=== PATIENT | male | born 1950 | race Caucasian/White ===

== ENCOUNTER 2025-06-29 14:19 | Outpatient (AMB) | payer MEDICARE, SELFPAY | END 2025-06-29 14:22 | disposition home or self-care (01) | LOC: HO.HMGAL 14:19 | PROVIDERS: PCP Internal Medicine; Visit Provider Registered Nurse Emergency | DX: J30.89 Other allergic rhinitis (principal) | CPT/HCPCS: 95117; 95165 ==

== ENCOUNTER 2025-07-27 15:04 | Outpatient (AMB) | payer MEDICARE, SELFPAY ==
--- OUTSIDE RECORDS SUMMARY | 2025-07-27 20:29 | XMS_ITS ---
Author Name Gopal Chicas Address Unknown Organization [facility] Care Team Providers Care Test Desk Trouble Locator Name Role Phone Unavailable Primary Care Physician Unavailab le History Of Present Illness This is a 75 year old male who is an established patient who is being seen for an evaluation of skin lesions.Location: body throughoutPertinent History: actinic keratosesPertinent Negatives: no family history of melanoma and no family history of non-melanoma skin cancerAdditional Visit Reasons: education and counseling about sun exposure, evaluation for suspicious growths, and evaluation of current neviAdditional History: Patient presents for CSE, Medications Medication Generic Name RxNorm Strength Strength Unit Route Dose Dose Form Frequency Date Started Date Ended Status Indication Sig fluticasone propionate 50 mcg/actua tion Nasal spray ,susp ensio n suspend ed Adult Aspirin Regimen aspirin 81 mg Oral 1 table t,del ayed relea se (DR/E C) qd active Adult Multivitami n (w-lutein) mv-min-f olic acid-lut ein 200-137.5 mcg Oral 1 table t,sherin wable qd active amlodipine 5 mg Oral table t suspend ed amlodipine amlodipi ne 5 mg Oral 1 table t qd active atorvastati n 10 mg Oral table t suspend ed atorvastati n atorvast atin 10 mg Oral 1 table t qd active H2Q CoQ10 coenzyme Q10 200 mg/gram Oral 1 powde r qd active losartan 50 mg Oral table t suspend ed losartan [id number] 50 mg Oral 1 table t qd active Problems Problem Code Type Status Date of Diagnosis Date of Resolution Seborrheic keratosis (disorder) 190227693( SNOMED) Diagnosis active 07/27/2025 Hypopigmentation of skin (disorder) 17475518(S NOMED) Diagnosis active 07/27/2025 Caf au lait spot (disorder) 897582247( SNOMED) Diagnosis active 07/27/2025 Melanocytic nevus of left lower limb (disorder) 5149910620 15469(SNOM ED) Diagnosis active 07/27/2025 Hemangioma of skin and subcutaneous tissue (disorder) 036288696( SNOMED) Diagnosis active 07/27/2025 Disorder of pigmentation (disorder) 413525023( SNOMED) Diagnosis active 07/27/2025 Seborrheic keratosis (disorder) 460880323( SNOMED) Diagnosis active 08/11/2024 Hemangioma of skin and subcutaneous tissue (disorder) 873815090( SNOMED) Diagnosis active 08/11/2024 Hypopigmentation of skin (disorder) 94896262(S NOMED) Diagnosis active 08/11/2024 Caf au lait spot (disorder) 798266035( SNOMED) Diagnosis active 08/11/2024 Melanocytic nevus of left lower limb (disorder) 5978091012 21310(SNOM ED) Diagnosis active 08/11/2024 Actinic keratosis (disorder) ( SNOMED) Diagnosis active 02/06/2024 Inflamed seborrheic keratosis (disorder) 630662797( SNOMED) Diagnosis active 02/06/2024 Seborrheic keratosis (disorder) 493403804( SNOMED) Diagnosis active 02/06/2024 Actinic keratosis (disorder) ( SNOMED) Diagnosis active 03/13/2023 Hemangioma of skin and subcutaneous tissue (disorder) 961772208( SNOMED) Diagnosis active 03/13/2023 Hypopigmentation of skin (disorder) 06620413(S NOMED) Diagnosis active 03/13/2023 Hypopigmentation of skin (disorder) 60906410(S NOMED) Diagnosis active 03/09/2022 Actinic keratosis (disorder) ( SNOMED) Diagnosis active 03/09/2022 Melanocytic nevus of trunk (disorder) 377685325( SNOMED) Diagnosis active 03/09/2022 Melanocytic nevus of left lower limb (disorder) 5904044113 80873(SNOM ED) Diagnosis active 03/09/2022 Melanocytic nevus of lower limb (disorder) 477151677( SNOMED) Diagnosis active 03/09/2022 Increased blood pressure (finding) 91230119(S NOMED) Problem active Hypercholesterolemia (disorder) 89301378(S NOMED) Problem active Actinic keratosis (disorder) ( SNOMED) Problem active Results No data Encounters Service provided at [facility], [address] [place] [address], [address], [place], [place] [id number]. Office phone number is [phone]. Office fax number is [phone]. 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 (L81.3)Acral Nevus (D22.72)Bhat Angiomas (D18.01)Lentigines (L81.4) [facility] 07/27/2025 13:20:00 [facility] [id number] Reason For Referral No data Procedures Procedure Date Documentation of current medications (pr ocedure) 07/27/2025 12:00 am [place] Destruction of premalignant skin lesion (procedure) 02/06/2024 12:00 am [place] Cryotherapy of skin lesion with liquid n itrogen (procedure) 02/06/2024 12:00 am UTC Cryotherapy of skin lesion with liquid n itrogen (procedure) 03/13/2023 12:00 am [place] Review Of Systems Provider reviewed on Jul 27, 2025.A focused review of systems was performed including Integumentary.No Problems With Healing And No Problems With Scarring (hypertrophic Or Keloid). Assessment 1.Seborrheic KeratosisCounseling2.Idiopathic Guttate HypomelanosisCounseling3.Cafe au lait maculeCounseling4.Acral NevusCounselingMonitoring5.Bhat AngiomasCounseling6.LentiginesCounseling Plan of Care Future visit for 07/27/2026 - Follow up in 1 year for: Skin Check. Other Instructions: 10CSE. OtherInstructions: 10CSE. Instructions * I counseled the patient regarding the following:Skin Care: Seborrheic Keratoses are benign. No treatment is necessary.Expectations: Seborrheic Keratoses are benign warty growths. Patients get more ofthem with time. * I counseled the patient regarding the following:Skin care: New lesions can be prevented by minimizing sun exposure, wearing sunscreen and protective clothing.Expectations: Idiopathic Guttate Hypomelanosis are white spots caused from sun damage.Contact office if: white spots become larger, or spreadto other parts of the body.I recommended the following: Sunscreen * I counseled the patient regarding the following:Skin care: CALMs with irregular borders can often respond to q-switched lasers.Expectations: Cafe au lait macules are benign johnson patches seen at .Patients with multiple CALMs should be screened for associated syndromes (Neurofibromatosis, richardson syndrome, peibaldism, tuberous sclerosis, juanita-silver) * I counseled the patient regarding the following:Expectations: Benign Nevi are pigmented nests of cells within the skin.Contact Office if: Any moles change in size, shape or color; itch, burn or bleed.I recommended the following: Broad Spectrum Sunscreen SPF 30+Self-Skin Exams * I counseled the patient regarding the following:Skin Care: Bhat Angiomas can resolve with lasers or electrodesiccation.Expectations: Bhat Angiomas are benign vascular growths. No treatment is necessary. * I counseled the patient regarding the following:Skin Care: Lentigines can resolve with broad spectrum sunscreen, sun avoidance, bleaching creams, retinoids, chemical peels and laser.Expectations: Lentigines are benign pigmented lesions that occur on sun-exposed and sun-damaged skin.I recommended the following: Broad Spectrum Sunscreen SPF 30+ Social History Code Activity Start Date End Date [id number] (MRI Interventions) Never smoker Sex male Sexual orientation Unspecified Gender identity Unspecified Vital Signs No data
== END 2025-07-27 15:05 | disposition home or self-care (01) ==
LOC: HO.HMGAL 15:04
PROVIDERS: PCP Internal Medicine; Visit Provider Registered Nurse Emergency
DX: J30.89 Other allergic rhinitis (principal)
CPT/HCPCS: 95117; 95165

== ENCOUNTER 2025-08-26 15:41 | Outpatient (AMB) | payer MEDICARE, SELFPAY | END 2025-08-26 15:41 | disposition home or self-care (01) | LOC: HO.HMGAL 15:41 | PROVIDERS: PCP Internal Medicine; Visit Provider Registered Nurse Emergency | DX: J30.89 Other allergic rhinitis (principal) | CPT/HCPCS: 95117; 95165 ==

== ENCOUNTER 2025-09-21 14:09 | Outpatient (AMB) | payer MEDICARE, SELFPAY | END 2025-09-21 14:09 | disposition home or self-care (01) | LOC: HO.HMGAL 14:09 | PROVIDERS: PCP Internal Medicine; Visit Provider Registered Nurse Emergency | DX: J30.89 Other allergic rhinitis (principal) | CPT/HCPCS: 95117; 95165 ==

== ENCOUNTER 2025-10-19 14:41 | Outpatient (AMB) | payer MEDICARE, SELFPAY ==
--- OUTSIDE RECORDS SUMMARY | 2025-10-19 23:52 | XMS_ITS ---
Author Organization Unknown ENCOUNTERS Encounter Performer Location Date Diagnosis Diagnosis Status Outpatient OLGA THOMAS [address] [id number] [facility] [address] [id number] [facility] In[facility] [address] [address] [id number] [facility] [address] [id number] [facility] [address] [id number] Outpatient [address] [address] [id number] Outpatient TAYLA LAYTON MD [address] [address] [id number] Outpatient TAYLA LAYTON MD [address] [address] [id number] *Note: Encounters from your own facility or health system may be excluded. Allergies, Adverse Reactions, Alerts Allergen Type Severity Identification Date Medications Name Date Quantity Days Supplied GPI Number
== END 2025-10-19 14:42 | disposition home or self-care (01) ==
LOC: HO.HMGAL 14:41
PROVIDERS: PCP Internal Medicine; Visit Provider Registered Nurse Emergency
DX: J30.89 Other allergic rhinitis (principal)
CPT/HCPCS: 95117; 95165